=== PATIENT | male | born 1960 | race Caucasian/White ===

== ENCOUNTER 2021-10-17 10:12 | Outpatient (CLI) | payer OTHER, SELFPAY ==
--- NOTE | 2021-10-17 | USCV_ITS ---
Willard Lopez Age: 61 Gender: M : 1960 Exam Date: 10/17/2021 11:02 Ordering Phys: Abdirahman Lainez MD Technologist: Jose Manuel Greene Exam Location: [facility] – [place] Indication: Symptomatic PVC's BP: 130 / 85 HR: 60 Rhythm: Sinus Technical Quality: Adequate MEASUREMENTS (Male / Female) Normal Values 2D ECHO LV Diastolic Diameter PLAX 4.6 cm 4.2 - 5.9 / 3.9 - 5.3 cm LV Systolic Diameter PLAX 3.1 cm IVS Diastolic Thickness 1.1 cm 0.6 - 1.0 / 0.6 - 0.9 cm IVS Systolic Thickness 1.4 cm LVPW Diastolic Thickness 1.4 cm 0.6 - 1.0 / 0.6 - 0.9 cm LVPW Systolic Thickness 1.3 cm LVOT Diameter 2.0 cm LV Ejection Fraction 2D Teich 61.7 % LV Ejection Fraction MOD 2C 59.4 % LV Ejection Fraction 2C AL 58.9 % LA Diameter 3.5 cm LA Width 3.3 cm LA Height 4.2 cm RA Width 3.5 cm RA Height 4.6 cm Aorta at Sinotubular Diameter 2.7 cm IVC Diameter 1.9 cm M-MODE Aortic Annulus Diameter 3.0 cm LA Ao Ratio MM 1.2 MV E Point Septal Separation 0.6 cm DOPPLER AV Peak Velocity 117.0 cm/s LVOT Peak Velocity 88.0 cm/s AV Area Cont Eq vti 2.4 cm squared AV Area Cont Eq pk 2.4 cm squared MV Peak Velocity 89.0 cm/s MV Area PHT 4.6 cm squared Mitral E to A Ratio 1.0 MV E' Velocity 40.0 cm/s Mitral E to MV E' Ratio 7.7 Mitral E to LV E' Lateral Ratio 8.2 Mitral E to LV E' Septal Ratio 7.2 TR Peak Velocity 295.8 cm/s TR Peak Gradient 35.0 mmHg TR Mean Velocity 239.8 cm/s TR Mean Gradient 23.9 mmHg TR Velocity Time Integral 100.9 cm Right Atrial Pressure 3.0 mmHg Pulmonary Artery Systolic Pressu 38.0 mmHg RV Acceleration Time 0.1 s RV Ejection Time 0.3 s RV AcT/ET 0.4 FINDINGS Left Ventricle Normal left ventricular size, systolic function and wall thickness, with no regional wall motion abnormalities. Left ventricular ejection fraction is estimated at 65 %. Normal diastolic function. Right Ventricle Normal right ventricular size and systolic function. Right ventricular systolic pressure 38 mmHg. Right Atrium Normal right atrial size. Right atrial pressure estimated at 3 mm Hg. Left Atrium Upper normal left atrial size. There is possible small patent foramen ovale. Mitral Valve Structurally normal mitral valve. No mitral valve stenosis. Trace mitral valve regurgitation. Aortic Valve Structurally normal trileaflet aortic valve. No aortic valve stenosis. No aortic valve regurgitation. Tricuspid Valve Structurally normal tricuspid valve. No tricuspid valve stenosis. Trace to mild tricuspid valve regurgitation. Pulmonic Valve Structurally normal pulmonic valve. No pulmonary valve stenosis. Trace pulmonary valve regurgitation. Pericardium No pericardial effusion. Aorta Normal size aortic root and proximal ascending aorta. IVC Normal IVC dimension with >50% respiratory change of the inferior vena cava. CONCLUSIONS 1. Normal left ventricular size, systolic function and wall thickness, with no regional wall motion abnormalities. Left ventricular ejection fraction is estimated at 65 %. Normal diastolic function. 2. Normal right ventricular size and systolic function. 3. Trace to mild tricuspid valve regurgitation. 4. Pulmonary artery pressure estimated at 38 mm Hg. 5. There is possible small patent foramen ovale. 6. No prior similar studies to compare. Radha Liang MD (Electronically Signed) Final Date: 18 Oct 2021 19:40 S
== END 2021-10-17 10:13 | disposition home or self-care (01) ==
PROVIDERS: Visit Provider Family Medicine
DX: I49.3 Ventricular premature depolarization (principal)
CPT/HCPCS: 93306

== ENCOUNTER 2023-08-14 11:44 | Outpatient (CLI) | payer MEDICARE, OTHER, SELFPAY ==
--- NOTE | 2023-08-14 11:53 | USCV_ITS ---
Willard Lopez Age: 63 Gender: M : 1960 Exam Date: 08/14/2023 12:05 Ordering Phys: Abdirahman Lainez MD Technologist: LETICIA Exam Location: [facility] – [place] Indication: EVAL FOR PFO BP: 155 / 104 HR: 48 Rhythm: Sinus Technical Quality: Adequate MEASUREMENTS (Male / Female) Normal Values 2D ECHO LV Diastolic Diameter PLAX 4.3 cm 4.2 - 5.9 / 3.9 - 5.3 cm IVS Diastolic Thickness 1.4 cm 0.6 - 1.0 / 0.6 - 0.9 cm IVS Systolic Thickness 2.0 cm LVPW Diastolic Thickness 1.8 cm 0.6 - 1.0 / 0.6 - 0.9 cm LVPW Systolic Thickness 2.3 cm LVOT Diameter 2.0 cm LV Ejection Fraction 2D Teich 72.5 % LV Ejection Fraction MOD 2C 53.2 % LV Ejection Fraction 2C AL 51.5 % LA Diameter 3.0 cm RA Systolic Volume 4C AL 37.8 ml RA Systolic Volume 4C MOD 35.8 ml Aorta at Sinotubular Diameter 2.7 cm IVC Diameter 1.2 cm M-MODE LA Ao Ratio MM 1.1 AV Cusp Separation MM 2.0 cm DOPPLER AV Peak Velocity 99.0 cm/s LVOT Peak Velocity 84.0 cm/s AV Area Cont Eq vti 2.6 cm squared AV Area Cont Eq pk 2.7 cm squared MV Peak Velocity 80.0 cm/s MV Area PHT 3.4 cm squared Mitral E to A Ratio 0.9 TR Peak Velocity 162.0 cm/s TR Peak Gradient 10.5 mmHg TR Mean Velocity 130.0 cm/s TR Mean Gradient 7.3 mmHg TR Velocity Time Integral 44.6 cm TV Peak E Velocity 53.0 cm/s Right Atrial Pressure 3.0 mmHg Pulmonary Artery Systolic Pressu 13.5 mmHg PV Peak Velocity 125.0 cm/s RV Ejection Time 0.3 s FINDINGS Left Ventricle Normal left ventricular size with borderline low ejection fraction of 53% . .mild left ventricular hypertrophy. No regional wall motion abnormalities. Right Ventricle The right ventricle is normal in size and function. Right Atrium No evidence of interatrial shunt by color-flow Doppler examination normal by saline contrast injection Left Atrium Normal left atrial size. Mitral Valve Trace to mild mitral valve regurgitation. Aortic Valve No gross abnormalities noted Tricuspid Valve Trace tricuspid valve regurgitation. Pulmonic Valve Pulmonic valve not well visualized. Pericardium Normal pericardium without effusion. Aorta Normal ascending aorta dimension. IVC The inferior vena cava appears normal. CONCLUSIONS Normal left ventricular size with borderline low ejection fraction of 53% . .mild left ventricular hypertrophy. No regional wall motion abnormalities. No evidence of interatrial shunt by color-flow Doppler examination normal by saline contrast injection. Trace to mild mitral valve regurgitation. Trace tricuspid valve regurgitation. No evidence of intracardiac shunt by color-flow Doppler examination or by saline contrast injection Compared to the study from 10/17/2021, there is a slight drop in the LV ejection fraction Dr Annie Arechiga MD FACC (Electronically Signed) Final Date: 15 August 2023 13:55 S
== END 2023-08-14 11:45 | disposition home or self-care (01) ==
LOC: RAD 11:45
PROVIDERS: Visit Provider Family Medicine
DX: Q21.12 Patent foramen ovale (principal); I51.7 Cardiomegaly; I34.0 Nonrheumatic mitral (valve) insufficiency
CPT/HCPCS: C8929

== ENCOUNTER → 2024-01-02 08:49 | Outpatient (BNVA) | payer MEDICARE, OTHER, SELFPAY | PROVIDERS: Visit Provider Nurse Practitioner Family | DX: D48.5 Neoplasm of uncertain behavior of skin (principal); D36.11 Benign neoplasm of peripheral nerves and autonomic nervous system of face, head, and neck; D22.5 Melanocytic nevi of trunk; L82.1 Other seborrheic keratosis; Z85.828 Personal history of other malignant neoplasm of skin | CPT/HCPCS: 11102; 99203 ==

== ENCOUNTER 2024-08-19 13:02 | Outpatient (CLI) | payer MEDICARE, OTHER, SELFPAY ==
--- NOTE | 2024-08-19 13:03 | XR_ITS ---
WS: [id number] DEXA (DUAL ENERGY X-RAY ABSORPTIOMETRY) Bone mineral density was performed using a CLIPPATE machine. HISTORY: OTHER SPECIFIED DISORDERS OF BD STRUCTURES COMPARISON: None available. Lumbar spine BMD (L1-L4): 1.084 T score: -1.3 Z score: -0.8 Total hip BMD: Left: 0.885 g/cm2. T score: -1.5 Z score: -0.9 Right: 0.829 g/cm2. T score: -1.9 Z score: -1.3 10 year probability of a major osteoporotic fracture is 8.1%. XR/XR DEXA axial skeleton* [id number] IMPRESSION: OSTEOPENIA. Male patient.
== END 2024-08-19 13:03 | disposition home or self-care (01) ==
LOC: RAD 13:02
PROVIDERS: Visit Provider Family Medicine
DX: M85.80 Other specified disorders of bone density and structure, unspecified site (principal)
CPT/HCPCS: 77080